=== PATIENT | female | born 1985 | race Caucasian/White ===

== ENCOUNTER 2017-03-07 08:26 | Emergency (ER) | payer OTHER ==
[2017-03-07 08:34] VITALS: BP 120/80
[2017-03-07] MEDS ORDERED: DIPHTH,PERTUSS(ACELL),TET VAC 0.5 ML VIAL IM ONE ×2 (08:41→08:47)
[2017-03-07] MEDS ORDERED: HYDROcodone/ACETAMINOPHEN 1 EACH TABLET PO ONE ×2 (08:42→09:30)
[2017-03-07] MEDS ORDERED: HYDROcodone/ACETAMINOPHEN 1 EACH TABLET ONE ×2 (08:47→09:38)
[2017-03-07] MEDS ORDERED: AMOX TR/POTASSIUM CLAVULANATE 875 MG TABLET PO ONE (09:26)
--- NOTE | 2017-03-07 09:33 | ERNOTE ---
Upper Extremity HPI - General Extremities Pain Location: 3rd finger: left Time Seen by Provider: 03/07/17 09:08 Source: patient Exam Limitations: no limitations - Immun/Allergies/Home Medications Immunizations: IMMUNIZATION HX Immunizations Up to Date Yes History of Influenza Vaccine No Hx Pneumococcal Vaccination No Allergies/Adverse Reactions: Allergies Allergy/AdvReac Type Severity Reaction Status Date / Time No Known Allergies Allergy Verified 03/07/17 08:34 Home Medications: HOME MEDICATIONS Amox Tr/Potassium Clavulanate [Augmentin 875-125 Tablet] 875 mg PO Q12H #10 tab 03/07/17 [Last Taken Unknown] oxyCODONE HCL/ACETAMINOPHEN [Percocet 10-325 mg Tablet] 1 each PO QID #20 tablet 03/07/17 [Last Taken Unknown] - History of Present Illness Narrative: Patient was worked today and got her left middle finger caught in one of the machines and took off the very distal tip of the left third digit. Patient states her pain is moderate and there is some bleeding that still persists. Occurred: just prior to arrival Location of Incident: work Severity: moderate Method of Injury: Reports: direct blow Loss of Consciousness: Reports: no loss of consciousness Other Injuries: Reports: none Review of Systems - Review of Systems Constitutional: Present: See HPI EYE: Present: no symptoms reported ENT: Present: no symptoms reported Respiratory: Present: no symptoms reported Cardiology: Present: no symptoms reported Gastrointestinal/Abdominal: Present: no symptoms reported Genitourinary: Present: no symptoms reported Musculoskeletal: Present: See HPI Skin: Present: no symptoms reported Neurological: Present: no symptoms reported Endocrine: Present: no symptoms reported Hematologic/Lymphatic: Present: no symptoms reported Psych: Present: no symptoms reported - Patient's Past Medical History Patient History - Medical: Anxiety Patient History - Cardiac/Respiratory: No pertinent hx Patient History - Cancer: No Hx of Cancer Patient History - Surgical Procedures: Other Patient History - Other: None LMP (females 10-50): last week - Social History Living Situations: other Abuse History: No History of abuse Psych History: No pertinent hx, Hx of Anxiety Smoking Status: Current every day smoker Have you smoked in the past 12 months: Yes Do you dip or chew tobacco: No Alcohol Use: occasionally Drug Use: none - Immunizations Immunizations Up to Date: Yes Hx Pneumococcal Vaccination: No History of Influenza Vaccine: No Physical Exam - Physical Exam General Appearance: Present: wd/wn, alert, moderate distress Eye Exam: Normal inspection: bilateral, PERRL: bilateral Ears, Nose, Throat: Present: normal ENT inspection, H, normal pharynx Neck: Present: normal inspection, nontender Respiratory: Present: no respiratory distress, normal breath sounds, no accessory muscle use, chest nontender, lungs clear Cardiovascular/Chest: Present: regular rate, rhythm, no murmur, normal peripheral pulses Gastrointestinal/Abdominal: Present: normal bowel sounds, nontender, nondistended, soft, no organomegaly Rectal Exam: Present: deferred Back Exam: Present: normal inspection, normal range of motion Extremity Exam: Present: normal range of motion, other - patient is completely severed the distal tip of the third digit on her hand, however no evidence of any bony involvement is present Neurological Exam: Present: alert, oriented, normal mood/affect Skin Exam: Present: normal color, warm/dry Lymphatic Exam: Present: no adenopathy ED Progress - Vital Signs Patient's Vital Signs:: I have reviewed the patient's vital signs. Vital Signs: Vital Signs 03/07/17 08:28 Temperature 36.5 C Pulse Rate 79 Respiratory 17 Rate Blood Pressure 120/80 O2 Sat by Pulse 100 Oximetry - X-Ray X-Ray #1 X-Ray: finger Interpretation: Reviewed by me - Progress/Reassessment Chief Complaint: Hand Injury/Pain Plan - Plan Plan: I discussed the case with Andrea Mcghee, the PA who is on-call for the orthopedic group and patient will have wet-to-dry placed a Xerofoam will be placed over that and she will go to the outpatient day surgery tomorrow for further closure of this partial finger amputation. Departure Clinical Impression: Fingertip amputation Qualifiers: Encounter type: initial encounter Qualified Code(s): S68.129A - Partial traumatic metacarpophalangeal amputation of unspecified finger, initial encounter - Departure Disposition: Home self-care Condition: Good Instructions: Traumatic Finger Amputation Additional Instructions: Please go to outpatient surgery at [facility] tomorrow morning for the closure prodedure. Referrals: Andrea Mcghee, PAC [[facility]] - Prescriptions: Amox Tr/Potassium Clavulanate [Augmentin 875-125 Tablet] 875 mg PO Q12H #10 tab oxyCODONE HCL/ACETAMINOPHEN [Percocet 10-325 mg Tablet] 1 each PO QID #20 tablet
[2017-03-07] MEDS ORDERED: AMOX TR/POTASSIUM CLAVULANATE 875 MG TABLET ONE (09:38)
== END 2017-03-07 10:35 | disposition home or self-care (01) ==
LOC: ER 08:26
DX: S68.123A Partial traumatic metacarpophalangeal amputation of left middle finger, initial encounter (principal); X58.XXXA Exposure to other specified factors, initial encounter; Y93.H3 Activity, building and construction; Y92.63 Factory as the place of occurrence of the external cause; Y99.0 Civilian activity done for income or pay; Z23 Encounter for immunization; F17.200 Nicotine dependence, unspecified, uncomplicated

== ENCOUNTER 2017-03-08 06:47 | Day surgery (SDC) | payer OTHER ==
[~2017-03-08 06:47] MED LIST: ACETAMINOPHEN 500 MG TABLET PO PRN; HYDROmorphone HCL 2 MG/ML VIAL IV PRN; MAG HYDROX/ALUMINUM HYD/SIMETH 30 ML UDC PO PRN; MAGNESIUM HYDROXIDE 30 ML UDC PO PRN; ONDANSETRON HCL/PF 2 MG/ML VIAL IV PRN; PROMETHAZINE HCL 25 MG in DEXTROSE 5 % IN WATER 50 ML IV PRN; RINGER'S SOLUTION,LACTATED 1,000 ML IV PRN; ZOLPIDEM TARTRATE 5 MG TABLET PO PRN; ceFAZolin SODIUM 1 GM VIAL IV PRN; diphenhydrAMINE HCL 50 MG/ML VIAL IV PRN; oxyCODONE HCL/ACETAMINOPHEN 1 TAB TABLET PO PRN
--- NOTE | 2017-03-08 07:51 | HP ---
Chief Complaint - Chief Complaint Date of Service: 03/08/17 Chief Complaint: Left long fingertip injury History of Present Illness: Winnie is a 31 yo F who sustained a L long fingertip amputation at work yesterday at [employer]. She caught her fingertip in a can welding machine. She was initially seen in our ED where the wound was thoroughly irrigated, she received a dose of IV antibiotics, the wound was dressed with a biologic dressing, and she was discharged on oral antibiotics with instructions to come into ambulatory surgery this morning for evaluation and revision amputation. - Patient's Past Medical History Patient History - Medical: Anxiety, Depression, UTI'S Patient History - Cardiac/Respiratory: No pertinent hx Patient History - Cancer: No Hx of Cancer Patient History - Surgical Procedures: Other Patient History - Other: None LMP (females 10-50): now - Family History Mother Family History - Medical: Anemia Family History - Cardiac/Respiratory: No pertinent hx Family History - Cancer: No pertinent family hx Father Family History - Medical: History Unknown Family History - Cardiac/Respiratory: History Unknown Family History - Cancer: History Unknown - Social History Living Situations: spouse Abuse History: No History of abuse Psych History: Hx of Anxiety, Hx of Depression, Current tx/ever been on anti- depressants or anti-anxiety meds Alcohol Use: occasionally Drug Use: none - Immunizations Immunizations Up to Date: Yes Hx Pneumococcal Vaccination: No History of Influenza Vaccine: No Review Of Systems (GEN) - Review of Systems Additional Comments: As per HPI, otherwise negative. Immunizations: IMMUNIZATION HX Immunizations Up to Date Yes History of Influenza Vaccine No Hx Pneumococcal Vaccination No Allergies/Adverse Reactions: Allergies Allergy/AdvReac Type Severity Reaction Status Date / Time No Known Allergies Allergy Verified 03/08/17 07:17 Home Medications: HOME MEDICATIONS Amox Tr/Potassium Clavulanate [Augmentin 875-125 Tablet] 875 mg PO Q12H #10 tab 03/07/17 [Last Taken Unknown] oxyCODONE HCL/ACETAMINOPHEN [Percocet 10-325 mg Tablet] 1 each PO QID #20 tablet 03/07/17 [Last Taken Unknown] Exam - Exam Vital Signs: Vital Signs - Last Taken Temp 36.5 C 03/08/17 07:31 Pulse 87 03/08/17 07:31 Resp 16 03/08/17 07:31 BP 120/71 03/08/17 07:31 Pulse Ox 99 03/08/17 07:31 Comprehensive Narrative: 03/08/17 07:46 Gen: A&Ox3, NAD Resp: breathing nonlabored, lung sounds clear to auscultation CV: RRR, no murmurs/rubs/gallops MSK: LUE--> transverse amputation through long finger distal phalanx, very tip of distal phalanx exposed, clean wound, nail plate gone, nail bed intact, volar skin intact, cap refill brisk, SILT Assessment/Plan - Narrative Narrative: 31 yo F w/ traumatic L long fingertip amputation. - discussed treatment options with her today. Given the exposed tip of the distal phalanx, I recommended revision L long fingertip amputation with a plan to shorten the distal phalanx and perform a local V-Y advancement flap for coverage. I discussed the risks in detail today including, but not limited to, infection, bleeding, flap necrosis, nail deformity, persistent numbness, need for additional procedures, and risks with anesthesia. After discussion, she wishes to proceed with surgery. Informed consent obtained. - plan for d/c post op, continue Augmentin post op - One arm duty at work - F/u in Ortho clinic for wound check on Sunday03/12/17
[2017-03-08] MEDS: RINGER'S SOLUTION,LACTATED 1,000 ML IV PRN ×2 (08:00→08:45)
[2017-03-08] MEDS ORDERED: BUPIVACAINE HCL 50 ML VIAL IJ ONE (08:20)
--- NOTE | 2017-03-08 09:22 | OR ---
Operative Report - Dictated Report Narrative: Date: 03/08/2017 Physician: Bala Aviles M.D. [employer] Operator: Hugh Lechuga PA-C Preoperative diagnosis: Traumatic left long fingertip amputation Postoperative diagnosis: Traumatic left long transverse fingertip amputation with exposed bone Procedure: Revision amputation left long fingertip with local VY advancement flap Anesthesia: MAC Plus digital block Complications: None Estimated blood loss: Minimal Tourniquet time: 28 Minutes with forearm esmarch band Specimens: None Retained implants: None Drains: None Indications: Winnie Is a 31 year-old female who sustained a left long fingertip amputation at work when her finger was caught in a can welding machine. She was seen in the emergency department where the wound was thoroughly irrigated, a dose of IV antibiotics was given, the wound was dressed with a biologic dressing, and she was placed on oral Augmentin. Orthopedics was consulted and she was instructed to come in the next morning to ambulatory surgery for evaluation and revision fingertip amputation. Upon evaluation in ambulatory surgery exam demonstrated a clean transverse fingertip amputation through the distal phalanx with intact proximal nailbed and intact volar skin. I recommended revision fingertip amputation with a local VY advancement flap. I discussed the risks in detail with her including, but not limited to, bleeding, infection, flap necrosis, nail deformity, persistent numbness, need for additional procedures, and risks with anesthesia. Informed consent was obtained. Procedure: After marking the correct extremity in the preoperative holding area, a timeout was performed in the operating room. IV antibiotics consisting of 1 g of Ancef were administered prior to the procedure. A well-padded, nonsterile tourniquet was applied to the operative upper arm. The arm was exsanguinated and the tourniquet was inflated to 250 mmHg. 0.5% Marcaine without epinephrine was used to perform a digital block of the long finger. Using loupe magnification, the wound was irrigated and debrided of all hematoma and nonviable looking tissue. Following debridement were left with a small amount of exposed distal phalanx, loss of approximately the distal third of the nailbed, and intact volar finger pad. At this point we decided to proceed with a local VY advancement flap for coverage. The distal phalanx was debrided back just proximal to the level of the intact nail bed using a rongeur. Careful dissection with a knife and tenotomy scissors was undertaken to release the volar subcutaneous tissue from the periosteum of the distal phalanx to mobilize this tissue. We then marked out a V-shaped incision with the apex at the distal finger crease. The skin was incised being careful not to dissect deeply into the subcutaneous tissue to preserve the vascularity of our flap. The flap was then advanced up and over the tip of the finger with very little tension and secured to the nailbed using 5-0 chromic suture. The proximal portion of the advancement flap was then closed with 5-0 nylon completing our Y portion of the advancement. The tourniquet was then let down and after a period of waiting and was good return of capillary refill to the fingertip and advancement flap with good bleeding from the skin edges of the flap. The wound was thoroughly irrigated. A piece of Xeroform was placed in the nail fold to keep it open. Sterile dressings consisting of Xeroform, 4 x 4, and tube gauze were applied. All sponge, needle, blade, and instrument counts were correct prior to closing the wounds. The patient was awoken and transferred to the post -anesthesia care unit in stable condition.
[2017-03-08 10:11] VITALS: BP 124/71
[2017-03-08] MEDS ORDERED: SENNOSIDES/DOCUSATE SODIUM 1 TAB TABLET PO SCH (21:00)
== END 2017-03-08 06:48 | disposition home or self-care (01) ==
LOC: AMB 06:47
PROVIDERS: ATTEND Orthopaedic Surgery
PROC: 0X6R0Z3 Detachment at Left Middle Finger, Low, Open Approach (ICD-10-PCS; principal; 2017-03-08 08:00)
DX: S68.613A Complete traumatic transphalangeal amputation of left middle finger, initial encounter (principal); F17.200 Nicotine dependence, unspecified, uncomplicated; W31.89XA Contact with other specified machinery, initial encounter; Y99.0 Civilian activity done for income or pay; Z68.26 Body mass index [BMI] 26.0-26.9, adult